=== PATIENT | female | born 1945 | race Native Hawaiian/Other Pacific Islander ===

== ENCOUNTER 2021-07-21 13:17 | Outpatient (CLI) | payer OTHER | END 2021-07-21 18:58 | disposition home or self-care (01) | LOC: RAD 13:17 | PROVIDERS: ATTEND Internal Medicine | DX: M25.551 Pain in right hip (principal); M54.17 Radiculopathy, lumbosacral region ==

== ENCOUNTER 2021-08-15 10:20 | Outpatient (CLI) | payer OTHER | END 2021-08-15 21:48 | disposition home or self-care (01) | LOC: RAD 10:20 | PROVIDERS: ATTEND Internal Medicine | DX: Z13.820 Encounter for screening for osteoporosis (principal); N95.8 Other specified menopausal and perimenopausal disorders ==

== ENCOUNTER 2023-02-14 13:45 | Outpatient (CLI) | payer MEDICARE | END 2023-02-14 20:42 | disposition home or self-care (01) | LOC: RESP 13:45 | PROVIDERS: ATTEND Internal Medicine | DX: Z01.818 Encounter for other preprocedural examination (principal) | CPT/HCPCS: 93005 ==